=== PATIENT | female | born 1995 | race Caucasian/White ===

== ENCOUNTER → 2020-11-20 | Outpatient (CLI) | payer OTHER ==
[~2020-11-20] MED LIST: DEPO-PROVE150 MG/11 IM
== END ==
LOC: KOH-I 10:10
DX: R10.84 Generalized abdominal pain (principal)
CPT/HCPCS: 76700

== ENCOUNTER → 2020-12-25 | Day surgery (SDC) | payer OTHER ==
[2020-12-26 15:11] LABS: ENDOMYSIAL ANTIBODY IGA Negative (Negative); IMMUNOGLOBULIN A, QN, SERUM 66 mg/dL (87-352); T-TRANSGLUTAMINASE (TTG) IGA <2 U/mL (0-3); T-TRANSGLUTAMINASE (TTG) IGG <2 U/mL (0-5)
== END | disposition home or self-care (01) ==
LOC: OR 07:24
PROVIDERS: Internal Medicine Gastroenterology
DX: K29.50 Unspecified chronic gastritis without bleeding (principal); K31.9 Disease of stomach and duodenum, unspecified; K21.00 Gastro-esophageal reflux disease with esophagitis, without bleeding; K90.0 Celiac disease; J45.909 Unspecified asthma, uncomplicated; F32.9 Major depressive disorder, single episode, unspecified; F41.9 Anxiety disorder, unspecified; F17.290 Nicotine dependence, other tobacco product, uncomplicated
CPT/HCPCS: 36415; 82784; 84703; J2704; J7040

== ENCOUNTER 2021-04-19 23:27 | Emergency (ER) | payer OTHER ==
[2021-04-20] MEDS ORDERED: MEDROL DOSEPAK 24 MG PO (01:27)
[2021-04-20] MEDS ORDERED: TORADOL 10 MG T10 MG PO (01:27)
[2021-04-20] MEDS ORDERED: NORFLEX 100 MG100 MG PO (01:27)
== END 2021-04-20 02:03 | disposition home or self-care (01) ==
LOC: ER1 23:27
DX: N20.0 Calculus of kidney (principal); F17.200 Nicotine dependence, unspecified, uncomplicated
CPT/HCPCS: 72131; 96372; 99283; J1100; J1885

== ENCOUNTER → 2021-05-21 | Outpatient (CLI) | payer OTHER ==
[~2021-05-21] MED LIST changes: +MEDROL DOSEPAK 24 MG PO; +NORFLEX 100 MG100 MG PO; +TORADOL 10 MG T10 MG PO
== END ==
LOC: EXRD 15:29
DX: N20.0 Calculus of kidney (principal)
CPT/HCPCS: 74018

== ENCOUNTER → 2021-08-28 | Outpatient (CLI) | payer OTHER | LOC: EMI 08-19 14:00 | DX: M51.26 Other intervertebral disc displacement, lumbar region (principal); M51.36 Other intervertebral disc degeneration, lumbar region; M48.061 Spinal stenosis, lumbar region without neurogenic claudication | CPT/HCPCS: 72158; A9577 ==

== ENCOUNTER → 2022-01-24 | Outpatient (CLI) | payer BC, OTHER | LOC: NM 09:00 | DX: R10.11 Right upper quadrant pain (principal) | CPT/HCPCS: 78227; A9537 ==

== ENCOUNTER → 2022-02-13 | Day surgery (SDC) | payer BC, OTHER ==
[~2022-02-13] MED LIST changes: +COLACE100 MG PO; +DEPO-ESTRAD5 MG/1 ML IM; +HYDROCODON-ACE1 EAC4 PO; +PEPCID AC20 MG PO; +ZOFRAN ODT 4 MG4 MG GT
== END | disposition home or self-care (01) ==
LOC: OR 05:37
DX: K80.12 Calculus of gallbladder with acute and chronic cholecystitis without obstruction (principal); K82.8 Other specified diseases of gallbladder; J45.909 Unspecified asthma, uncomplicated; K21.9 Gastro-esophageal reflux disease without esophagitis; E11.9 Type 2 diabetes mellitus without complications; F17.210 Nicotine dependence, cigarettes, uncomplicated; Z79.899 Other long term (current) drug therapy
CPT/HCPCS: 84703; C1729; J0690; J1100; J1170; J1885; J2001; J2250; J2405; J2550; J2704; J2710; J3010